=== PATIENT | male | born 1955 | race Caucasian/White ===

== ENCOUNTER 2016-12-13 19:17 | Emergency (ER) | payer MEDICAID, OTHER ==
[~2016-12-13] VITALS: Ht 170.2 cm; Wt 85.0 kg
[2016-12-13 19:23] VITALS: Ht 170.2 cm; Wt 85.0 kg
[2016-12-13] MEDS ORDERED: IBUPROFEN 800 MG TAB PO ONE (19:30)
[2016-12-13 19:39] VITALS: TEMP 98
[2016-12-13] MEDS ORDERED: IBUP-1542 PO (19:59)
--- NOTE | 2016-12-13 20:00 | ERD ---
ER Documentation Chief Complaint Date/Time DATE: 12/13/16 TIME: 20:00 Chief Complaint CP X 6 MONTHS HPI Patient is a 61-year-old male with no medical problems who presents with chest pain. The patient was brought in by ambulance. He said that he has had chest pain for the past 6 months. He said it was worse today. He describes the pain as an 8 out of 10. He was given aspirin and nitroglycerin 3 by paramedics. He is homeless and admits to drinking alcohol. He says that he just wants to stay in the hospital because he does not have a place to live. He is refusing blood test. He said that he has had falls starting 2 years ago. He does not currently have a primary doctor. Upon review of old medical records this is the patient's first visit to the emergency department. ROS All systems reviewed and are negative except as per history of present illness. Medications Home Meds Active Scripts Ibuprofen* (Motrin*) 600 Mg Tab, 600 MG PO Q8, #30 TAB Prov:JUAN HAYNES MD 12/13/16 Allergies Allergies: Coded Allergies: No Known Allergy (Unverified , 12/13/16) PMhx/Soc Medical and Surgical Hx: pt denies Medical Hx, pt denies Surgical Hx Hx Alcohol Use: Yes (CHRONIC ALCOHOLIC) Hx Substance Use: No (DENIES) Hx Tobacco Use: No (DENIES) Smoking Status: Unknown if ever smoked FmHx Family History: No coronary disease Physical Exam Vitals Vital Signs Date Time Temp Pulse Resp B/P Pulse Ox O2 Delivery O2 Flow Rate FiO2 12/13/16 20:35 71 20 140/79 97 Room Air 12/13/16 19:39 98.0 100 20 121/76 Room Air 12/13/16 19:23 98.0 104 19 123/75 100 Physical Exam Const: No acute distress Head: Atraumatic Eyes: Normal Conjunctiva ENT: Normal External Ears, Nose and Mouth. Neck: Full range of motion..~ No meningismus. Resp: Clear to auscultation bilaterally Cardio: Regular rate and rhythm, no murmurs Abd: Soft, non tender, non distended. Normal bowel sounds Skin: No petechiae or rashes Back: No midline or flank tenderness Ext: No cyanosis, or edema Neur: Awake and alert Psych: Normal Mood and Affect Results 24 hrs Current Medications Medications (Trade) Dose Ordered Sig/Lisa Route PRN Reason Start Time Stop Time Status Last Admin Dose Admin Ibuprofen (Motrin) 800 mg ONCE ONCE PO 12/13/16 19:30 12/13/16 19:31 DC 12/13/16 19:47 Procedures/MDM EKG read by me: Rate/Rhythm: Regular rate and rhythm at a rate of 100 Intervals: Normal Impression: No evidence of ischemia or arrhythmia Chest X-ray 1V Interpreted by me: Soft Tissue: No acute abnormalities Bones: No acute abnormalities Mediastinum/Cardiac Silhouette/Lungs: No acute abnormalities Smoking Cessation Therapy: Pt. was lectured for greater than 3 minutes on the health risks of continued smoking and the benefits of cessation. Patient is a 61-year-old male with alcohol abuse and smoking who presents with chest pain. EKG and chest x-ray showed no signs of STEMI, pneumonia, or pneumothorax. The patient is refusing laboratory tests and says that he just wants to stay in the hospital because he does not have a place to live. I told him that we could not admit him for that alone. At this point I believe that outpatient management is appropriate. I doubt acute coronary syndrome, pneumonia, pneumothorax, pulmonary embolism, or aortic dissection. The patient will need to follow-up with the local clinics within 24-48 hours as he does not currently have a primary doctor. He can return sooner for any worsening symptoms. Departure Diagnosis: Primary Impression: Chest pain Chest pain type: unspecified Qualified Code: R07.9 - Chest pain, unspecified type Condition: Fair Patient Instructions: Chest Pain, Uncertain Cause Referrals: [facility] YOU HAVE RECEIVED A MEDICAL SCREENING EXAM AND THE RESULTS INDICATE THAT YOU DO NOT HAVE A CONDITION THAT REQUIRES URGENT TREATMENT IN THE EMERGENCY DEPARTMENT. FURTHER EVALUATION AND TREATMENT OF YOUR CONDITION CAN WAIT UNTIL YOU ARE SEEN IN YOUR DOCTORS OFFICE WITHIN THE NEXT 1-2 DAYS. IT IS YOUR RESPONSIBILITY TO MAKE AN APPOINTMENT FOR FOLOW-UP CARE. IF YOU HAVE A PRIMARY DOCTOR --you should call your primary doctor and schedule an appointment IF YOU DO NOT HAVE A PRIMARY DOCTOR YOU CAN CALL OUR PHYSICIAN REFERRAL HOTLINE AT IF YOU CAN NOT AFFORD TO SEE A PHYSICIAN YOU CAN CHOSE FROM THE FOLLOWING [facility] [address] [facility] [address] [facility] [facility] [address] [facility] [address] [facility] [address] [facility] [facility] [address] Additional Instructions: Call your primary care doctor TOMORROW for an appointment during the next 1-2 days.See the doctor sooner or return here if your condition worsens before your appointment time. JUAN HAYNES MD Dec 13, 2016 20:00
--- NOTE | 2016-12-13 20:12 | RADRPT ---
PROCEDURE: XR Chest. CLINICAL INDICATION: Chest pain. TECHNIQUE: Single frontal chest x-ray. COMPARISON: None. FINDINGS: The cardiomediastinal silhouette is unremarkable. There is no congestive heart failure.. No focal i nfiltrate is seen. There is no pleural effusion. There is no pneumothorax. The osseous structures are unremarkable. IMPRESSION: 1. No active disease. RPTAT: HMVK .Austin Higuera MD, MD Date Time Electronically viewed and signed by .Austin Higuera MD, MD on 12/13/2016 20:11 .K/
[2016-12-13 20:35] VITALS: BP 140/79; PULSE 71; RESP 20
== END 2016-12-13 20:35 | disposition home or self-care (01) ==
LOC: E/R 19:17
DX: R07.9 Chest pain, unspecified (principal)
CPT/HCPCS: 71010; 93005; Z7502; Z7610